=== PATIENT | male | born 1940 | race Caucasian/White ===

== ENCOUNTER 2021-09-21 00:52 | Inpatient (IN) | payer OTHER ==
[~2021-09-21] VITALS: Ht 170.2 cm; Wt 49.2 kg
[2021-09-21] MEDS ORDERED: IV NORMAL SALINE 500 ML BAG IV ONE (01:15)
[2021-09-21] MEDS ORDERED: IV NORMAL SALINE 1000 ML BAG IV ONE ×2 (01:30→03:00)
[2021-09-21] MEDS ORDERED: FLUCONAZOLE 100 MG TABLET PO ONE (01:45)
[2021-09-21] MEDS ORDERED: PIPERACILLIN SODIUM/TAZOBACTAM 3.375 G in IV DEXTROSE 5% 50 ML IV ONE (01:45)
[2021-09-21] MEDS ORDERED: LIDOCAINE 2% (UROJET) 10 ML JELLY MM ONE ×2 (01:45→03:04)
[2021-09-21 02:19] LABS: HEMATOCRIT 35.4 % (36.7-47.1); MEAN CORPUSCULAR HEMOGLOBIN 32.5 uug (23.8-33.4); MEAN CORPUSCULAR VOLUME 95.1 fL (73.0-96.2); PLATELET COUNT (AUTO) 411 K/uL (152-348)
[2021-09-21 02:22] LABS: ALANINE AMINOTRANSFERASE 128 U/L (16-63); ALKALINE PHOSPHATASE 156 U/L (50-136); ASPARTATE AMINOTRANSFERASE 280 U/L (15-37); BILIRUBIN,DIRECT 0.9 mg/dL (0.0-0.2); BILIRUBIN,TOTAL 1.3 mg/dL (0.2-1.0); CARBON DIOXIDE 24 mmol/L (21-32); CHLORIDE 96 mmol/L (98-107); CREATININE 1.8 mg/dL (0.6-1.3); GLUCOSE 107 mg/dL (74-106); TOTAL PROTEIN, SERUM 6.7 g/dL (6.4-8.2)
[2021-09-21 02:29] LABS: POTASSIUM 6.9 mmol/L (3.5-5.1); UREA NITROGEN, BLOOD 85 mg/dL (7-18)
[2021-09-21] MEDS ORDERED: INSULIN REGULAR, HUMAN 300 UNIT/3 ML VIAL IV ONE (02:45)
[2021-09-21] MEDS ORDERED: SODIUM BICARBONATE 8.4% 50 MEQ/50 ML DISP.SYRIN IV ONE ×2 (02:45→03:04)
[2021-09-21] MEDS ORDERED: CALCIUM GLUCONATE IV 1 GM in IV NORMAL SALINE 100 ML IV ONE (02:45)
[2021-09-21] MEDS ORDERED: DEXTROSE 50% 50 ML DISP.SYRIN IV ONE (02:45)
[2021-09-21] MEDS ORDERED: FUROSEMIDE 20 MG/2 ML VIAL IVP ONE (02:45)
[2021-09-21] MEDS ORDERED: PIPERACILLIN/TAZOBACTAM/D5W 50 ML IV ONE ×3 (02:50→19:19)
[2021-09-21] MEDS ORDERED: FLUCONAZOLE 100 MG TABLET ONE (02:50)
[2021-09-21] MEDS ORDERED: FUROSEMIDE 20 MG/2 ML VIAL ONE (03:03)
[2021-09-21] MEDS ORDERED: CALCIUM GLUCONATE 1 GM/10 ML VIAL IV ONE (03:03)
[2021-09-21] MEDS ORDERED: DEXTROSE 50% 50 ML DISP.SYRIN ONE (03:04)
[2021-09-21 03:20] LABS: *BILIRUBIN,URIN NEGATIVE (NEGATIVE); *BLOOD, URINE 3+ (NEGATIVE); *COLOR,URINE YELLOW (YELLOW); *KETONES,URINE TRACE (NEGATIVE); LEUKOCYTE ESTERASE ,URINE 1+ (NEGATIVE); NITRITE, URINE POSITIVE (NEGATIVE); UGLUCOSE NEGATIVE (NEGATIVE)
[2021-09-21 03:21] LABS: *CLARITY,URINE HAZY (CLEAR)
[2021-09-21] MEDS ORDERED: INSULIN REGULAR, HUMAN 300 UNIT/3 ML VIAL ONE (03:23)
[2021-09-21 03:26] LABS: BACTERIA,URINE MANY /HPF (NONE SEEN); RBC,URINE 20-50 /HPF (0-3); WBC,URINE 80-100 /HPF (0-3)
[2021-09-21 03:27] LABS: SQUAMOUS EPITHELIAL CELL,UR FEW /HPF (NONE SEEN)
[2021-09-21] MEDS ORDERED: THIA100T74 PO (03:52)
[2021-09-21] MEDS ORDERED: SILV50CR32 TP (03:52)
[2021-09-21] MEDS ORDERED: CYAN100T44 PO (03:52)
[2021-09-21] MEDS ORDERED: CALC-1210 PO (03:52)
[2021-09-21] MEDS ORDERED: ASPI81TA31 PO (03:52)
[2021-09-21] MEDS ORDERED: ALEN70TA80 PO (03:52)
[2021-09-21] MEDS ORDERED: FLUN25SP NS (03:52)
--- NOTE | 2021-09-21 03:57 | NUR ---
[facility] gave authorization to admit patient here. Pt. admitted to [facility], under care of Dr. Solano. Dx: Hyperkalemia, Dehydration, Syncope. Belongs List completed
--- NOTE | 2021-09-21 04:58 | NUR ---
700ml urine output from mosqueda
[2021-09-21 06:45] LABS: CARBON DIOXIDE 23 mmol/L (21-32); CHLORIDE 100 mmol/L (98-107); CREATININE 1.7 mg/dL (0.6-1.3); GLUCOSE 66 mg/dL (74-106); POTASSIUM 5.1 mmol/L (3.5-5.1); UREA NITROGEN, BLOOD 78 mg/dL (7-18)
[2021-09-21] MEDS ORDERED: MAGNESIUM HYDROXIDE 30 ML LIQUID UDC PO PRN (06:45)
[2021-09-21] MEDS ORDERED: MORPHINE SULFATE 2 MG/1 ML DISP.SYRIN IV PRN (06:45)
[2021-09-21] MEDS ORDERED: Z GUARD REMEDY PASTE 57 GM TUBE TOP PRN (06:45)
[2021-09-21] MEDS ORDERED: ONDANSETRON 4 MG/2 ML VIAL IV PRN (06:45)
[2021-09-21] MEDS ORDERED: HYDROCODONE/APAP 5-325MG TABLET PO PRN (06:45)
[2021-09-21] MEDS ORDERED: ACETAMINOPHEN 325 MG TABLET PO PRN (06:45)
[2021-09-21] MEDS ORDERED: SODIUM POLYSTYRENE SULFONATE 15 G/60 ML LIQUID UDC PO ONE ×2 (06:45→09:15)
[2021-09-21 06:48] LABS: MAGNESIUM 2.6 mg/dL (1.8-2.4); PHOSPHOROUS 4.7 mg/dL (2.5-4.9)
--- NOTE | 2021-09-21 06:57 | NUR ---
TEXTED DR. CALDERON FOR MRI APPROVAL.
[2021-09-21] MEDS ORDERED: ASPIRIN 81 MG TAB.CHEW PO SCH (09:00)
[2021-09-21] MEDS: PANTOPRAZOLE SODIUM 40 MG TABLET.DR PO SCH (09:08)
[2021-09-21] MEDS: IV NS 1000 ML 1,000 ML IV PRN (09:08)
[2021-09-21] MEDS: ASPIRIN 81 MG TAB.CHEW PO SCH (09:08)
[2021-09-21] MEDS ORDERED: HYDROCODONE/APAP 5-325MG TABLET ONE (09:14)
[2021-09-21] MEDS ORDERED: PANTOPRAZOLE SODIUM 40 MG TABLET.DR PO ONE (09:14)
[2021-09-21] MEDS ORDERED: ASPIRIN 81 MG TAB.CHEW ONE (09:14)
[2021-09-21] MEDS ORDERED: SODIUM POLYSTYRENE SULF POWDER 15 GM UDC PO ONE (09:15)
[2021-09-21] MEDS ORDERED: SODIUM POLYSTYRENE SULFONATE 15 G/60 ML LIQUID UDC ONE (09:19)
--- NOTE | 2021-09-21 10:00 | NUR ---
Pt ate breakfast with good appetite. Repeat EKG done and handed to , pt to CT via itzel with NAD noted.
--- NOTE | 2021-09-21 10:15 | NUR ---
Pt left Er for CT scan.
--- NOTE | 2021-09-21 10:51 | NUR ---
Pt back from ct. No C/O pain. HL on RT AC infiltrated, removed. Place new HL on RT FA 20 guage. Pt tolorated well.
[2021-09-21] MEDS: PIPERACILLIN SODIUM/TAZOBACTAM 3.375 G in IV DEXTROSE 5% 100 ML IV SCH ×2 (11:04→19:15)
[2021-09-21] MEDS ORDERED: ACETAMINOPHEN 325 MG TABLET ONE (11:07)
--- NOTE | 2021-09-21 11:10 | NUR ---
Pt denies dizziness/lightheaded and appears to not be disoriented.
--- NOTE | 2021-09-21 11:10 | NUR ---
Paged Dr Abernathy for pt's low BP, awaiting call back.
--- NOTE | 2021-09-21 12:17 | NUR ---
Patient is resting comfortably in bed with eyes closed, NAD noted.
[2021-09-21] MEDS ORDERED: IV NS 1000 ML 1,000 ML IV ONE (12:45)
[2021-09-21] MEDS: MIDODRINE HCL 5 MG TABLET PO SCH ×2 (12:57→17:01)
[2021-09-21] MEDS ORDERED: PIPERACILLIN SODIUM/TAZOBACTAM 3.375 G in IV DEXTROSE 5% 50 ML IV SCH (14:00)
[2021-09-21] MEDS ORDERED: ENOXAPARIN SODIUM 60 MG/0.6 ML DISP.SYRIN SQ SCH ×2 (16:00→21:00)
[2021-09-21] MEDS ORDERED: ENOXAPARIN SODIUM 60 MG/0.6 ML DISP.SYRIN SQ ONE (16:02)
--- NOTE | 2021-09-21 16:24 | NUR ---
Dr Abernathy at the bedside, made aware of hypotension.
--- NOTE | 2021-09-21 17:43 | NUR ---
Assissted pt to situp in bed. Pt able to dangle feet and sit up, but needed max assisst to stand and take couple of steps. Unsteady gait and generalized weakness.
--- NOTE | 2021-09-21 17:50 | NUR ---
Spoke to Amada, psych social worker regarding pt discharge home. Pt states I can't go home tonight, "there's nobody home".
--- NOTE | 2021-09-21 18:33 | NUR ---
DR FERMIN THOMAS WAS NOTIFIED ABOUT PT'S UNABILITY TO WALK. PT CAN BE ADMITTED TO [facility] ROOM ACCORDING TO DR FERMIN THOMAS ORDER.
--- NOTE | 2021-09-21 21:24 | NUR ---
PT NOTED TO BE IN BED RESTING COMFORTABLY, WATCHING TV. DENIES ANY PAIN/DISCOMFORT.
--- NOTE | 2021-09-21 22:29 | NUR ---
GAVE REPORT TO
--- NOTE | 2021-09-21 23:00 | NUR ---
PT NOTED TO BE SOILED, PROPER PERINEAL CARE PROVIDED, NOTED TO BE CLEAN AND DRY. DENIES ANY PAIN/DISCOMFORT.
--- NOTE | 2021-09-21 23:20 | NUR ---
Admitted a 81 years old male with Dx of Hyperkalemia, MERLYN and Presyncope under [facility] status. Patient AAOx4. In no apparent distress. Denies any pain or SOB. O2 sat at 93% on RA. NSR on tele with PAC's and PVC's at 93/min HR. IV site on right wrist area intact and patent. Hinojosa catheter intact and draining via gravity. Patient with multiple wounds present. Photos taken and dressing change. Needs assessed and attended to. Routine admission care done. Plan of care initiated. Safety measure initiated and call light within reached. Continue to monitor.
[2021-09-21 23:30] VITALS: BP 95/54
--- NOTE | 2021-09-21 23:37 | NUR ---
Pt. admitted to [facility] , under care of Dr. Solano Belongs List completed
[2021-09-22] MEDS: IV NS 1000 ML 1,000 ML IV PRN (00:27)
[2021-09-22] MEDS ORDERED: PIPERACILLIN SODIUM/TAZO 3.375 GM VIAL ONE (01:01)
[2021-09-22] MEDS: PIPERACILLIN SODIUM/TAZOBACTAM 3.375 G in IV DEXTROSE 5% 100 ML IV SCH ×3 (02:18→18:13)
[2021-09-22 04:00] VITALS: BP 102/65
[2021-09-22] MEDS: PANTOPRAZOLE SODIUM 40 MG TABLET.DR PO SCH (06:24)
--- NOTE | 2021-09-22 06:40 | NUR ---
In no acute distress. Denies any pain or SOB. NSR on tele with PAC's and PVC's. HR at 80/min. No adverse reaction noted from IV antibiotics. IVF continue to infuse. Dressing on BLE intact, dry and clean. Hinojosa catheter remains intact and patent. Needs attended to and met. Safety measure maintained and call light within reached.
[2021-09-22 06:55] LABS: HEMATOCRIT 30.9 % (36.7-47.1); MEAN CORPUSCULAR HEMOGLOBIN 32.8 uug (23.8-33.4); MEAN CORPUSCULAR VOLUME 96.5 fL (73.0-96.2); PLATELET COUNT (AUTO) 232 K/uL (152-348)
[2021-09-22 07:55] LABS: BILIRUBIN,DIRECT 0.6 mg/dL (0.0-0.2); BILIRUBIN,TOTAL 0.8 mg/dL (0.2-1.0); CREATININE 1.2 mg/dL (0.6-1.3); MAGNESIUM 2.3 mg/dL (1.8-2.4); PHOSPHOROUS 3.9 mg/dL (2.5-4.9); POTASSIUM 3.4 mmol/L (3.5-5.1); TOTAL PROTEIN, SERUM 5.1 g/dL (6.4-8.2)
[2021-09-22] MEDS: ASPIRIN 81 MG TAB.CHEW PO SCH (09:07)
[2021-09-22] MEDS: MIDODRINE HCL 5 MG TABLET PO SCH ×3 (09:07→18:09)
[2021-09-22 09:42] LABS: THYROID STIMULATING HORMONE 3.205 mIU/mL (0.358-3.740)
[2021-09-22] MEDS ORDERED: POTASSIUM CHLORIDE 20 MEQ TAB.PRT.SR PO ONE (10:15)
--- NOTE | 2021-09-22 10:19 | NUR ---
WOUND CARE CONSULT: PT PRESENTS WITH MULTIPLE WOUNDS, PRESENT ON ADMISSION INCLUDING SACRAL INTACT DEEP TISSUE INJURY, UNSTAGEABLE PRESSURE ULCER TO UPPER BACK, DISCOLORATION TO RT HIP/THIGH AREA WELL MULTIPLE WOUNDS WITH SOME NECROTIC TISSUE AND ODOR TO LOWER EXTREMITIES. DPM CONSULT CALLED TO DR BENITEZ AND SURGICAL CONSULT CALLED TO DR SALINAS. PT IS CACHECTIC. DIETARY CONSULT IN PLACE. RECOMMENDATIONS MADE FOR SKIN PROTECTION. DISCUSSED WITH NURSING STAFF.
[2021-09-22 11:32] VITALS: BP 106/56
--- NOTE | 2021-09-22 14:20 | NUR ---
Clinical Social Work Note SW consult was requested for assessment of wounds. Patient is a 81 year old male who is alert and oriented x4. Patient presents with a withdrawn mood and flat affect. SW inquired about the origin of patient's wounds. Patient stated that his wounds were a result of him falling while his feet were wet. Patient stated that he was in a osborne when he got out of shower, put on socks with wet feet, and then he fell. Patient stated that after his fall he began to bruise which then lead to the wounds. Patient stated that he lives at home and he has someone who brings him groceries and his neighbor assists him when needed. Patient stated that he discussed with his son about SNF placement. Patient stated that he did not have son's phone number as son lives in [place] and communicated with him via Present. SW provided patient with her contact number and informed him to provided contact to son. Plan: ANNETTA will work with director case management to refer patient to SNF placement.
[2021-09-22 14:25] VITALS: BP 123/57
--- NOTE | 2021-09-22 14:45 | NUR ---
Social Work APS Report Protective Services Report (Intake ID [id number]) was submitted on 09/22/2021 at 2:42 PM. A copy has been placed in patient's chart.
[2021-09-22 15:30] VITALS: BP 123/57
[2021-09-22] MEDS: ENSURE ENLIVE (VAN) 240 ML LIQUID PO SCH (18:09)
[2021-09-22] MEDS: ARGININE/GLUTAMINE/CALCIUM BMB 1 EACH POWD.PACK PO SCH (18:09)
[2021-09-22] MEDS: ENOXAPARIN SODIUM 60 MG/0.6 ML DISP.SYRIN SQ SCH (20:26)
--- NOTE | 2021-09-22 20:30 | NUR ---
PATIENT ALERT ORIENTED, NO SOB NO CHEST PAIN, ON ROOM AIR, PATIENT TELE MONITOR SINUS RHYTHM WITH PAC, PVC. PATIENT HAS MULTIPLE WOUNDS ON LOWER EXTREMITIES, MRI DONE TO RULE OUT OSTEOMYELITIS, ON [facility], TRAN CATH. NO COMPLAIN OF PAIN AT THIS TIME, CONT TO MONITOR.
[2021-09-22 20:41] VITALS: BP 111/58
[2021-09-22] MEDS: THERAHONEY GEL 1.5 OZ TUBE TOP SCH (23:47)
[2021-09-23 00:20] VITALS: BP 127/59
[2021-09-23] MEDS: IV NS 1000 ML 1,000 ML IV PRN (01:26)
[2021-09-23] MEDS: PIPERACILLIN SODIUM/TAZOBACTAM 3.375 G in IV DEXTROSE 5% 100 ML IV SCH ×3 (04:42→20:10)
[2021-09-23 04:55] VITALS: BP 98/50
[2021-09-23] MEDS: PANTOPRAZOLE SODIUM 40 MG TABLET.DR PO SCH (06:18)
--- NOTE | 2021-09-23 07:09 | NUR ---
PATIENT ALERT NO SOB NO CHEST PAIN, DENIES PAIN, AT THIS TIME, ON TELE MONITOR SINUS RHTYHM AT THIS TIME, NO S/S OF DISTRESS.
[2021-09-23 08:15] LABS: CREATININE 1.2 mg/dL (0.6-1.3); POTASSIUM 3.7 mmol/L (3.5-5.1)
[2021-09-23] MEDS: ASPIRIN 81 MG TAB.CHEW PO SCH (09:57)
[2021-09-23] MEDS: MIDODRINE HCL 5 MG TABLET PO SCH ×3 (09:57→16:18)
[2021-09-23] MEDS: ENSURE ENLIVE (VAN) 240 ML LIQUID PO SCH ×3 (09:58→16:15)
[2021-09-23] MEDS: FLUTICASONE PROP NASAL SPRAY 16 GM BOTTLE NS SCH (09:59)
[2021-09-23] MEDS: ARGININE/GLUTAMINE/CALCIUM BMB 1 EACH POWD.PACK PO SCH ×2 (09:59→16:15)
[2021-09-23] MEDS: THERAHONEY GEL 1.5 OZ TUBE TOP SCH (10:00)
[2021-09-23] MEDS: ENOXAPARIN SODIUM 60 MG/0.6 ML DISP.SYRIN SQ SCH ×2 (10:06→20:38)
[2021-09-23 11:30] VITALS: BP 99/58
[2021-09-23 15:16] VITALS: BP 113/65
--- NOTE | 2021-09-23 21:57 | NUR ---
PATIENT DROWSY NEED LOTS OF STIMULATION TO WAKE UP, 88% AT 4 LITERS, RT PUT PATIENT AT 15 LITERS NR MASK SAT 97 TO 98%, NOTIFY KHARI PRINGLE WITH ORDER ABG, CXR, NOTIFY RT, RN DICE MAKER CALLED FAMILY/CAREGIVER LEFT A MESSAGE AWAITING FOR RESPONSE. V/S 105/48, HR 71 TELE MONITOR SINUS RHTYHM WITH PAC. CONT TO MONITOR.
[2021-09-23 22:04] VITALS: BP 108/52
[2021-09-23 22:39] LABS: ABG BASE EXCESS -7.1 mmol/L; ABG HCO3 23.3 mmol/L; ABG PCO2 73.8 mmHg (35.0-45.0); ABG PH 7.118 (7.350-7.450); ABG SITE LEFT RADIAL; ABG TOTAL HEMOGLOBIN 12.1 G/dL (13.5-18.0); COHb 0.2 % (0.5-1.5); MetHb 0.2 % (0.0-1.5); O2Hb 95.6 % (94.0-97.0)
--- NOTE | 2021-09-23 23:05 | NUR ---
REPORTED TO ILYA PRINGLE ABG RESULT PATIENT ACIDOTIC, WITH ORDER TO PUT PATIENT ON BIPAP, RT AWARE, AND WILL DO REPEAT ABG IN AN HOUR.
--- NOTE | 2021-09-23 23:42 | NUR ---
MACHINERY ENGINEER ALVARO SPOKE WITH THE PATIENT CAREGIVER/EX , AND CAREGIVER STATED THAT PATIENT SON IS HIS WAY TO [place], FROM [place], AND BE HERE IN [place] BY SATURDAY. CAREGIVER STATED THAT SHE DECIDE FOR THE PATIENT WHEN SON NOT AVAILABLE. SHE STATED THAT PATIENT IS DNR, BUT SHE DON'T HAVE THE PAPERS TO PROVIDE THE HOSPITAL. PATIENT STILL CONSIDERED FULL CODE AT THIS TIME, WILL NOTIFY AM SHIFT.
[2021-09-24 00:28] LABS: ABG BASE EXCESS -9.6 mmol/L; ABG PCO2 66.6 mmHg (35.0-45.0); ABG PH 7.116 (7.350-7.450); ABG PO2 191.8 mmHg (75.0-100.0); ABG SITE LEFT RADIAL; CPAP,BG 10 cmH20; VENT MODE BIPAP
--- NOTE | 2021-09-24 01:19 | NUR ---
REPORTED TO GLADYS WALKER THE RESULT OF REPEAT ABG WITH NO NEW ORDER, PATIENT STILL ON BIPAP, OXYGEN TAPER DOWN ACCORDING TO RT, WILL KEPT ON BIPAP AT THIS TIME, PATIENT AROUSABLE, DENIES PAIN, NO S/S OF SOB NO CHEST PAIN, TELE MONITOR SINUS RHYTHM, CONT TO MONITOR.
[2021-09-24] MEDS: PIPERACILLIN SODIUM/TAZOBACTAM 3.375 G in IV DEXTROSE 5% 100 ML IV SCH ×3 (02:36→18:56)
[2021-09-24 05:48] LABS: ABG BASE EXCESS -5.1 mmol/L; ABG HCO3 23.2 mmol/L; ABG PCO2 58.7 mmHg (35.0-45.0); ABG PH 7.215 (7.350-7.450); ABG PO2 76.5 mmHg (75.0-100.0); ABG SITE LEFT RADIAL; ABG TOTAL HEMOGLOBIN 11.7 G/dL (13.5-18.0); COHb 0.3 % (0.5-1.5); CPAP,BG 10 cmH20; MetHb 0.1 % (0.0-1.5); O2Hb 93.6 % (94.0-97.0); VENT MODE BIPAP
[2021-09-24] MEDS: PANTOPRAZOLE SODIUM 40 MG TABLET.DR PO SCH (07:25)
--- NOTE | 2021-09-24 07:51 | NUR ---
PATIENT ASLEEP BUT AROUSABLE, CONT ON BIPAP SAT WNL, AFEBRILE, TELE MONITOR SINUS RHYTHM WITH PAC AND EPISODE OF TACHY. EX /CAREGIVER AWARE OF THE CONDITION, CLOSELY MONITOR, ENDORSE TO NEXT SHIFT.
[2021-09-24] MEDS: ENSURE ENLIVE (VAN) 240 ML LIQUID PO SCH ×3 (08:11→17:00)
[2021-09-24] MEDS: ASPIRIN 81 MG TAB.CHEW PO SCH (08:11)
[2021-09-24] MEDS: FLUTICASONE PROP NASAL SPRAY 16 GM BOTTLE NS SCH (08:11)
[2021-09-24] MEDS: ARGININE/GLUTAMINE/CALCIUM BMB 1 EACH POWD.PACK PO SCH ×2 (08:11→17:00)
--- NOTE | 2021-09-24 08:12 | NUR ---
received in bed asleep not easily arousable. non verbal. on bipap. unable to feed or give po meds at this time
[2021-09-24 08:32] LABS: HEMATOCRIT 37.7 % (36.7-47.1); MEAN CORPUSCULAR HEMOGLOBIN 31.9 uug (23.8-33.4); MEAN CORPUSCULAR VOLUME 100.1 fL (73.0-96.2); PLATELET COUNT (AUTO) 109 K/uL (152-348)
[2021-09-24 08:43] LABS: CARBON DIOXIDE 24 mmol/L (21-32); CHLORIDE 112 mmol/L (98-107); CREATININE 1.4 mg/dL (0.6-1.3); GLUCOSE 115 mg/dL (74-106); MAGNESIUM 2.9 mg/dL (1.8-2.4); PHOSPHOROUS 5.3 mg/dL (2.5-4.9); POTASSIUM 3.8 mmol/L (3.5-5.1); UREA NITROGEN, BLOOD 79 mg/dL (7-18)
--- NOTE | 2021-09-24 08:49 | NUR ---
unable to get a good b/p 55/20. hr in the 60s on . sating 90% on bipap. text carroting machine offbearer and called exchange waiting for response called nursing sup
[2021-09-24] MEDS: THERAHONEY GEL 1.5 OZ TUBE TOP SCH (09:00)
[2021-09-24] MEDS: MIDODRINE HCL 5 MG TABLET PO SCH ×3 (09:00→17:00)
[2021-09-24] MEDS: ENOXAPARIN SODIUM 60 MG/0.6 ML DISP.SYRIN SQ SCH ×2 (09:00→21:18)
[2021-09-24 09:07] VITALS: BP 55/20
--- NOTE | 2021-09-24 10:15 | NUR ---
Pt recieved from [facility]/Tele via bed. Pt is awake and on BIPAP at this time. VSS at this time.
--- NOTE | 2021-09-24 10:29 | NUR ---
TRANSFER TO CCU RIGHT NOW IN ER TRANSITION UNTIL CCU BED AVAILABLE
--- NOTE | 2021-09-24 10:58 | NUR ---
am meds not given due to change in condition
[2021-09-24 11:23] LABS: ABG BASE EXCESS -4.5 mmol/L; ABG HCO3 24.5 mmol/L; ABG PH 7.194 (7.350-7.450); ABG PO2 84.4 mmHg (75.0-100.0); ABG SITE LEFT RADIAL; ABG TOTAL HEMOGLOBIN 11.8 G/dL (13.5-18.0); COHb 0.3 % (0.5-1.5); MetHb 0.3 % (0.0-1.5); O2Hb 94.8 % (94.0-97.0); VENT MODE BIPAP
--- NOTE | 2021-09-24 11:24 | NUR ---
Dr Abernathy placed central line to RT Jugular. PT tolorated well. Xray for placement ordered.
[2021-09-24] MEDS ORDERED: PIPERACILLIN/TAZOBACTAM/D5W 50 ML IV ONE ×2 (11:27→18:53)
[2021-09-24] MEDS ORDERED: IV NORMAL SALINE 500 ML IV ONE (11:45)
--- NOTE | 2021-09-24 11:45 | NUR ---
FOLLOWING ABG RESULTS, PER VERBAL ORDER BY DR LE AT BEDSIDE, BIPAP CHANGES MADE 19/04, RR24
[2021-09-24] MEDS: CLINDAMYCIN PHOSPHATE IV 600 MG in IV DEXTROSE 5% 100 ML IV SCH ×3 (11:54→22:13)
[2021-09-24] MEDS ORDERED: CLINDAMYCIN PHOSPHATE 600 MG/4 ML VIAL ONE ×3 (11:56→22:14)
--- NOTE | 2021-09-24 12:00 | NUR ---
Reposition and made comfortable, pt is lethergic, but arousable.
[2021-09-24] MEDS: NOREPINEPHRINE BITARTRATE 8 MG in IV NORMAL SALINE 242 ML IV PRN ×2 (12:52→17:16)
[2021-09-24] MEDS: VANCOMYCIN IV 750 MG in IV DEXTROSE 5% 250 ML IV SCH (13:00)
--- NOTE | 2021-09-24 13:20 | NUR ---
Pt remaines on BIPAP, attempted to give water, pt is too weak and unable to sit up to drink. Also as soon as BIPAP face mask is removed, 02 sat drop to 80's.
--- NOTE | 2021-09-24 18:58 | NUR ---
Received pt on BiPAP with the following settings of I-18, E-8, RR-24, PS-10, FIO2-70%. Present BiPAP settings pt tolerated well. Face mask adjusted. Alarms checked and reset.
[2021-09-24] MEDS ORDERED: ENOXAPARIN SODIUM 60 MG/0.6 ML DISP.SYRIN SQ ONE (21:25)
[2021-09-25] MEDS: PIPERACILLIN SODIUM/TAZOBACTAM 3.375 G in IV DEXTROSE 5% 100 ML IV SCH ×3 (03:15→20:22)
[2021-09-25] MEDS ORDERED: PIPERACILLIN/TAZOBACTAM/D5W 50 ML IV ONE ×3 (03:18→19:23)
[2021-09-25] MEDS: CLINDAMYCIN PHOSPHATE IV 600 MG in IV DEXTROSE 5% 100 ML IV SCH ×3 (05:54→22:36)
[2021-09-25] MEDS ORDERED: CLINDAMYCIN PHOSPHATE 600 MG/4 ML VIAL ONE (05:56)
[2021-09-25 06:41] LABS: MEAN CORPUSCULAR VOLUME 96.9 fL (73.0-96.2); PLATELET COUNT (AUTO) 69 K/uL (152-348)
[2021-09-25 06:52] LABS: ALANINE AMINOTRANSFERASE 172 U/L (16-63); ALKALINE PHOSPHATASE 104 U/L (50-136); ASPARTATE AMINOTRANSFERASE 119 U/L (15-37); BILIRUBIN,TOTAL 0.7 mg/dL (0.2-1.0); CARBON DIOXIDE 24 mmol/L (21-32); CHLORIDE 113 mmol/L (98-107); CREATININE 1.7 mg/dL (0.6-1.3); GLUCOSE 96 mg/dL (74-106); MAGNESIUM 2.6 mg/dL (1.8-2.4); PHOSPHOROUS 6.8 mg/dL (2.5-4.9); POTASSIUM 3.9 mmol/L (3.5-5.1); TOTAL PROTEIN, SERUM 5.1 g/dL (6.4-8.2)
[2021-09-25 07:00] LABS: UREA NITROGEN, BLOOD 88 mg/dL (7-18)
[2021-09-25] MEDS: PANTOPRAZOLE SODIUM 40 MG TABLET.DR PO SCH (07:00)
--- NOTE | 2021-09-25 07:10 | NUR ---
Called [facility] to page Eloy Saul DNP.
--- NOTE | 2021-09-25 07:20 | NUR ---
Recieved pt in bed, resting, difficult to arouse, but arousable.
[2021-09-25] MEDS: IV D5W 1000ML 1,000 ML IV PRN (08:30)
[2021-09-25] MEDS: ARGININE/GLUTAMINE/CALCIUM BMB 1 EACH POWD.PACK PO SCH ×2 (09:00→17:00)
[2021-09-25] MEDS: ENSURE ENLIVE (VAN) 240 ML LIQUID PO SCH ×3 (09:00→17:00)
[2021-09-25] MEDS: MIDODRINE HCL 5 MG TABLET PO SCH ×3 (09:00→17:00)
[2021-09-25] MEDS: ASPIRIN 81 MG TAB.CHEW PO SCH (09:00)
[2021-09-25] MEDS: THERAHONEY GEL 1.5 OZ TUBE TOP SCH (09:10)
[2021-09-25] MEDS ORDERED: ENOXAPARIN SODIUM 60 MG/0.6 ML DISP.SYRIN SQ ONE (09:14)
[2021-09-25] MEDS: ENOXAPARIN SODIUM 60 MG/0.6 ML DISP.SYRIN SQ SCH (09:20)
[2021-09-25] MEDS: FLUTICASONE PROP NASAL SPRAY 16 GM BOTTLE NS SCH (09:21)
--- NOTE | 2021-09-25 09:40 | NUR ---
Pt became restless and attempting to pull BIPAP mask off, when asked if he is pain, he nodded.
--- NOTE | 2021-09-25 09:50 | NUR ---
Spoke to Dr Eulogio Hilario regarding Pt BLE woud debridement schudaule for tommorrow, postpond for now due to pt's condition.
[2021-09-25] MEDS ORDERED: MORPHINE SULFATE 2 MG/1 ML DISP.SYRIN ONE (09:58)
[2021-09-25 10:54] LABS: ABG BASE EXCESS -10.8 mmol/L; ABG HCO3 19.9 mmol/L; ABG PCO2 69.7 mmHg (35.0-45.0); ABG PH 7.073 (7.350-7.450); ABG PO2 88.2 mmHg (75.0-100.0); ABG SITE LEFT RADIAL; ABG TOTAL HEMOGLOBIN 11.7 G/dL (13.5-18.0); COHb 0.4 % (0.5-1.5); MetHb 0.3 % (0.0-1.5); O2Hb 94.9 % (94.0-97.0); VENT MODE BIPAP 18/8
[2021-09-25] MEDS: NOREPINEPHRINE BITARTRATE 8 MG in IV NORMAL SALINE 242 ML IV PRN (11:00)
[2021-09-25] MEDS ORDERED: IV NORMAL SALINE 1000 ML BAG IV ONE ×2 (11:15→16:30)
--- NOTE | 2021-09-25 12:10 | NUR ---
Levophed stopped per Dr wilbert mckeon.
--- NOTE | 2021-09-25 12:40 | NUR ---
Started on Levophed 0.1 mcg/kg/min per Dr Chiu order.
[2021-09-25 13:23] LABS: ABG BASE EXCESS -13.7 mmol/L; ABG HCO3 17.1 mmol/L; ABG PCO2 66.2 mmHg (35.0-45.0); ABG PH 7.029 (7.350-7.450); ABG SITE LEFT RADIAL; ABG TOTAL HEMOGLOBIN 10.2 G/dL (13.5-18.0); COHb 0.1 % (0.5-1.5); MetHb 0.1 % (0.0-1.5); O2Hb 94.7 % (94.0-97.0); VENT MODE BIPAP 20/8
--- NOTE | 2021-09-25 13:50 | NUR ---
Dr Abernathy speaking to pt's son, Ismael regarding plan of care.
[2021-09-25] MEDS: VANCOMYCIN IV 750 MG in IV DEXTROSE 5% 250 ML IV SCH (19:06)
[2021-09-25] MEDS ORDERED: IV NS 1000 ML 1,000 ML IV ONE (19:45)
[2021-09-25] MEDS: ALBUMIN HUMAN 25% 100 ML IV SCH (20:11)
[2021-09-25] MEDS ORDERED: ALBUMIN HUMAN 25% 50 ML ONE (20:15)
--- NOTE | 2021-09-25 22:33 | NUR ---
PATIENT'S SON ROSA AND EX DECIDED PATIENT TO BE NO CPR AND NO INTUBATION. FERMIN LE DNP AND DR JACOBY SORIA.
[2021-09-26 02:00] VITALS: BP 78/52
[2021-09-26] MEDS ORDERED: ALBUMIN HUMAN 25% 50 ML ONE ×2 (02:09→02:10)
[2021-09-26] MEDS ORDERED: PIPERACILLIN/TAZOBACTAM/D5W 50 ML IV ONE (02:09)
[2021-09-26] MEDS: PIPERACILLIN SODIUM/TAZOBACTAM 3.375 G in IV DEXTROSE 5% 100 ML IV SCH (02:20)
[2021-09-26] MEDS: ALBUMIN HUMAN 25% 100 ML IV SCH (02:21)
[2021-09-26] MEDS: IV D5W 1000ML 1,000 ML IV PRN (02:21)
--- NOTE | 2021-09-26 03:40 | NUR ---
RECEIVED PATIENT ON BiPAP WITH THE FOLLOWING SETTINGS THAT ARE CHARTED ON THE MECHANICAL VENTILATOR NOTES. FAMILY IS AT BEDSIDE. ALARMS ARE ON AND AUDIBLE. BiPAP IS PLUGGED IN THE RED OUTLET. NO SOB NOTED AT THIS TIME. WILL CONTINUE TO MONITOR.
[2021-09-26] MEDS: CLINDAMYCIN PHOSPHATE IV 600 MG in IV DEXTROSE 5% 100 ML IV SCH (06:34)
[2021-09-26 06:37] LABS: ABG BASE EXCESS -17.4 mmol/L; ABG HCO3 18.5 mmol/L; ABG PCO2 122.6 mmHg (35.0-45.0); ABG PH 6.796 (7.350-7.450); ABG PO2 69.7 mmHg (75.0-100.0); ABG SITE RIGHT RADIAL; ABG TOTAL HEMOGLOBIN 11.2 G/dL (13.5-18.0); COHb 0.1 % (0.5-1.5); CPAP,BG 12 cmH20; MetHb 0.2 % (0.0-1.5); O2Hb 88.2 % (94.0-97.0); VENT MODE BIPAP
[2021-09-26] MEDS: PANTOPRAZOLE SODIUM 40 MG TABLET.DR PO SCH (06:57)
[2021-09-26 07:23] LABS: CARBON DIOXIDE 21 mmol/L (21-32); CHLORIDE 112 mmol/L (98-107); GLUCOSE 181 mg/dL (74-106); MAGNESIUM 2.6 mg/dL (1.8-2.4); MEAN CORPUSCULAR HEMOGLOBIN 31.9 uug (23.8-33.4); POTASSIUM 4.6 mmol/L (3.5-5.1)
[2021-09-26 07:25] LABS: HEMATOCRIT 31.5 % (36.7-47.1); MEAN CORPUSCULAR VOLUME 99.9 fL (73.0-96.2)
[2021-09-26 07:26] LABS: PHOSPHOROUS 8.6 mg/dL (2.5-4.9); UREA NITROGEN, BLOOD 86 mg/dL (7-18)
[2021-09-26 07:37] LABS: PLATELET COUNT (AUTO) 42 K/uL (152-348)
[2021-09-26 07:55] LABS: BAND % (MANUAL) 12 % (0-10); LYMPHOCYTES % (MANUAL) 2 % (20-40); METAMYELOCYTES % 9 % (0-1); MONOCYTES % (MANUAL) 7 % (2-10); MYELOCYTES % 2 % (0-0); NEUTROPHILS % (MANUAL) 68 % (42-75)
[2021-09-26] MEDS: FLUTICASONE PROP NASAL SPRAY 16 GM BOTTLE NS SCH (08:46)
--- NOTE | 2021-09-26 08:54 | NUR ---
DR FERMIN THOMAS CALLED WITH CLARIFICATION ON PT's STATUS. ACCORDING TO DR THOMAS PT IS DNR, HE DISCUSSED PT's STATUS WITH PT's SON . PT's FAMILY WANTS TO KEEP PT ON COMFORT MEASURES ONLY AND MAKE PT DNR. NO CPR, NO INTUBATION.
[2021-09-26] MEDS ORDERED: ENOXAPARIN SODIUM 60 MG/0.6 ML DISP.SYRIN SQ SCH (09:00)
[2021-09-26] MEDS ORDERED: MORPHINE SULFATE 2 MG/1 ML DISP.SYRIN IV PRN (10:00)
--- NOTE | 2021-09-26 11:09 | NUR ---
PT's SON AND AT THE BEDSIDE. PT IS IN BED #1A. NO S/S OF DISOMFORT. NO S/S OF PAIN. CONTINUE TO MONITOR THE PT.
[2021-09-26] MEDS ORDERED: MORPHINE SULFATE PF IV DRIP 100 MG in IV DEXTROSE 5% 96 ML IV PRN (13:00)
--- NOTE | 2021-09-26 13:56 | NUR ---
DR SYED EVALUATED THE PT. DR SYED TALKED TO PT FAMILY. PT IS GOING TO BE ON COMFORT MEASSURES ONLY.
--- NOTE | 2021-09-26 18:56 | NUR ---
NURSING STONE GRADER WAS NOTIFIED. PT IS GOING TO BE TRANSFERED TO [facility] AFTER 20:00 .
--- NOTE | 2021-09-26 19:22 | NUR ---
PT AT 1800. DR SYED WAS NOTIFIED. PASSENGER SERVICE REPRESENTATIVE OFFICE WAS CALLED [phone]) , TALKED TO ANDREW. CASE WAS DENIED.
--- NOTE | 2021-09-26 19:23 | NUR ---
[facility] WAS CALLED ([phone]). TALKED TO SERGEI. CASE #[id number]. PT IS NOT ACCEPTED BY [facility], CASE DENIED.
--- NOTE | 2021-09-26 20:08 | NUR ---
PT AFTERCARE DONE AND WRAPPED UP IN BODY BAG, PICKED UP BY BONING ROOM WORKER AND SECURITY.
--- NOTE | 2021-10-02 16:20 | NUR ---
Clinical Social Work Note ANNETTA received a call from Kathie from Adult Protective Services (APS) inquirng about patient's discharge plan. ANNETTA informed APS worker that patient on 09/26/2021.
== END 2021-09-26 20:08 | DRG 871 ==
LOC: ER 00:57 → TRANSITION 08:38 → DOU3 22:33 → TELE-TD3 09-22 00:18 → TRANSITION 09-24 10:30
PROVIDERS: ADMIT Nurse Practitioner Acute Care; ATTEND Nurse Practitioner Acute Care
PROC: 5A09457 Assistance with Respiratory Ventilation, 24-96 Consecutive Hours, Continuous Positive Airway Pressure (ICD-10-PCS; principal; 2021-09-23)
PROC: B548ZZA Ultrasonography of Superior Vena Cava, Guidance (ICD-10-PCS; 2021-09-24)
PROC: 02HV33Z Insertion of Infusion Device into Superior Vena Cava, Percutaneous Approach (ICD-10-PCS; 2021-09-24)
DX: A41.9 Sepsis, unspecified organism (principal); I21.4 Non-ST elevation (NSTEMI) myocardial infarction; I50.33 Acute on chronic diastolic (congestive) heart failure; J96.02 Acute respiratory failure with hypercapnia; J96.01 Acute respiratory failure with hypoxia; E43 Unspecified severe protein-calorie malnutrition; N17.0 Acute kidney failure with tubular necrosis; G92.8 Other toxic encephalopathy; I21.A1 Myocardial infarction type 2; K72.00 Acute and subacute hepatic failure without coma; E87.1 Hypo-osmolality and hyponatremia; I70.269 Atherosclerosis of native arteries of extremities with gangrene, unspecified extremity; N39.0 Urinary tract infection, site not specified; M86.671 Other chronic osteomyelitis, right ankle and foot; R64 Cachexia; D68.59 Other primary thrombophilia; E87.5 Hyperkalemia; E78.5 Hyperlipidemia, unspecified; E83.51 Hypocalcemia; E86.0 Dehydration; Z51.5 Encounter for palliative care; Z66 Do not resuscitate; E86.1 Hypovolemia; F29 Unspecified psychosis not due to a substance or known physiological condition; I11.0 Hypertensive heart disease with heart failure; I25.10 Atherosclerotic heart disease of native coronary artery without angina pectoris; I70.0 Atherosclerosis of aorta; L97.519 Non-pressure chronic ulcer of other part of right foot with unspecified severity; L97.529 Non-pressure chronic ulcer of other part of left foot with unspecified severity; M40.209 Unspecified kyphosis, site unspecified; M81.0 Age-related osteoporosis without current pathological fracture; L89.100 Pressure ulcer of unspecified part of back, unstageable; R29.6 Repeated falls; R62.7 Adult failure to thrive; Z91.81 History of falling; Z95.1 Presence of aortocoronary bypass graft; I87.2 Venous insufficiency (chronic) (peripheral); D64.9 Anemia, unspecified; D69.6 Thrombocytopenia, unspecified; I46.9 Cardiac arrest, cause unspecified; M24.674 Ankylosis, right foot; M65.9 Synovitis and tenosynovitis, unspecified
CPT/HCPCS: 36415; 36600; 51702; 70030-TC; 71045; 73630; 73721; 83735; 84100; 84443; 85025; 85730; 87070; 87077; 87086; 93005; 93307; 94660; 97161; A4217; A4663; A6209; G0378; J0610; J1650; J1815; J1940; J2270; J2274; J2543; J3370; J3490; J3535; J7030; J7050; J7060; P9047; U0003